=== PATIENT | female | born 1965 | race Hispanic/Latino ===

== ENCOUNTER 2022-01-20 12:22 | Emergency (ER) | payer BC ==
[~2022-01-20] VITALS: Ht 157.5 cm; Wt 74.8 kg
[2022-01-20] MEDS ORDERED: AMLODIPINE BESY10 MG PO (13:56)
[2022-01-20] MEDS ORDERED: METFORMIN HCL500 M1 PO (13:56)
[2022-01-20] MEDS ORDERED: HYDROCHLOROTHIA25 MG PO (13:56)
[2022-01-20] MEDS ORDERED: LOSARTAN POTAS100 MG PO (13:56)
[2022-01-20] MEDS ORDERED: METOPROLOL SUC100 MG PO (13:56)
== END 2022-01-20 15:59 | disposition home or self-care (01) ==
LOC: ED 12:22
DX: F41.9 Anxiety disorder, unspecified (principal); E11.9 Type 2 diabetes mellitus without complications; I10 Essential (primary) hypertension; Z79.899 Other long term (current) drug therapy; Z79.84 Long term (current) use of oral hypoglycemic drugs
CPT/HCPCS: 36415; 80053; 83735; 84443; 85025; 85060; 99283